=== PATIENT | male | born 1955 | race Caucasian/White ===

== ENCOUNTER 2017-12-28 09:00 | Day surgery (SDC) | payer OTHER ==
[~2017-12-28] VITALS: Ht 160 cm; Wt 77.1 kg
[~2017-12-28 09:00] MED LIST: ASPI81CT95; GLU500
[2017-12-28] MEDS ORDERED: LIDOCAINE 2% 100 MG/5 ML UJET TP ONE (10:30)
[2017-12-28] MEDS ORDERED: KETOROLAC 30 MG/ML VIAL ONE (10:30)
== END 2017-12-28 11:22 | disposition home or self-care (01) ==
LOC: MDS 09:00 → MMU 09:01 → MDS 11:22
PROVIDERS: ATTEND Internal Medicine Gastroenterology
DX: Z12.11 Encounter for screening for malignant neoplasm of colon (principal); K63.5 Polyp of colon; E66.9 Obesity, unspecified; K46.9 Unspecified abdominal hernia without obstruction or gangrene; Z79.82 Long term (current) use of aspirin; Z79.899 Other long term (current) drug therapy; Z79.84 Long term (current) use of oral hypoglycemic drugs; Z68.30 Body mass index [BMI] 30.0-30.9, adult
CPT/HCPCS: 45385; 82948; J1885